=== PATIENT | female | born 1990 | race Caucasian/White ===

== ENCOUNTER 2016-11-09 20:41 | Emergency (ER) | payer BC ==
--- NOTE | 2016-11-09 21:13 | UC ---
Skin Complaint HPI - HPI Summary HPI Summary: 26 YEAR OLD FEMALE PRESENTS WITH COMPLAINS OF MULTIPLE BUG BITES. - History of Current Complaint Time Seen by Provider: 11/09/16 21:10 Stated Complaint: BUG BITES Hx Obtained From: Patient Hx Last Menstrual Period: 2 WEEKS AGO Onset/Duration: Lasting Days Skin Exposure Onset/Duration: Days Ago Timing: Constant Onset Severity: Moderate Current Severity: Moderate Pain Scale Used: 0-10 Numeric - 5 - Allergy/Home Medications Allergies/Adverse Reactions: Allergies Allergy/AdvReac Type Severity Reaction Status Date / Time No Known Allergies Allergy Verified 11/09/16 21:23 Review of Systems Constitutional: Negative Skin: Other - INSECT BITES Eyes: Negative ENT: Negative Respiratory: Negative Cardiovascular: Negative Gastrointestinal: Negative Genitourinary: Negative Motor: Negative Neurovascular: Negative Musculoskeletal: Negative Neurological: Negative Psychological: Negative All Other Systems Reviewed And Are Negative: Yes PMH/Surg Hx/FS Hx/Imm Hx - Surgical History Surgical History: Yes Surgery Procedure, Year, and Place: t/a - Social History Alcohol Use: None Substance Use Type: None Smoking Status (MU): Never Smoked Tobacco Physical Exam Triage Information Reviewed: Yes Eye Exam: Normal ENT Exam: Normal Dental Exam: Normal Neck exam: Normal Neck: Positive: 1 Respiratory Exam: Normal Cardiovascular Exam: Normal Abdominal Exam: Normal Musculoskeletal Exam: Normal Neurological Exam: Normal Psychological Exam: Normal Skin: Positive: Other - INSECT BITES Course/Dx - Diagnoses Provider Diagnoses: INSECT BITES Discharge - Discharge Plan Condition: Stable Disposition: HOME Prescriptions: Cephalexin CAP* [Keflex 500 CAP*] 500 mg PO TID #30 cap Methylprednisolone [Medrol Dosepak 4 MG*] 4 mg PO .SEE RAFIQ INSTRUCTION #21 tab Mupirocin 2% OINT* [Bactroban 2 % Oint*] 1 applic TOPICAL BID #2 tube Patient Education Materials: Insect Bite or Sting (ED), Bed Bugs (ED) Referrals: No Primary Care Phys,NOPCP [Primary Care Provider] -
[2016-11-09 21:30] VITALS: BP 117/71
== END 2016-11-09 21:36 | disposition home or self-care (01) ==
LOC: UCCORT 20:41
DX: T14.8 Other injury of unspecified body region (principal); W57.XXXA Bitten or stung by nonvenomous insect and other nonvenomous arthropods, initial encounter; Y93.9 Activity, unspecified; Y92.9 Unspecified place or not applicable
CPT/HCPCS: 99212; G0463

== ENCOUNTER 2017-07-16 18:39 | Emergency (ER) | payer BC ==
[2017-07-16 19:03] VITALS: BP 111/62
--- NOTE | 2017-07-16 20:03 | UC ---
Skin Complaint HPI - HPI Summary HPI Summary: itchy red blanching rash on both forearms, possible insect bites, - History of Current Complaint Chief Complaint: [facility] Time Seen by Provider: 07/16/17 19:54 Stated Complaint: RASH ON L ARM Hx Obtained From: Patient Hx Last Menstrual Period: 07/02/17 ?: No Onset/Duration: Sudden Onset Onset Severity: Mild Pain Intensity: 0 Location: Discrete Character: Pruritus, Redness Aggravating Factor(s): Nothing Alleviating Factor(s): Nothing Associated Signs & Symptoms: Positive: Negative - Allergy/Home Medications Allergies/Adverse Reactions: Allergies Allergy/AdvReac Type Severity Reaction Status Date / Time No Known Allergies Allergy Verified 07/16/17 19:03 Review of Systems Constitutional: Negative Skin: Rash Eyes: Negative ENT: Negative Respiratory: Negative Cardiovascular: Negative Gastrointestinal: Negative Genitourinary: Negative Motor: Negative Neurovascular: Negative Musculoskeletal: Negative Neurological: Negative Psychological: Negative Is Patient Immunocompromised?: No All Other Systems Reviewed And Are Negative: Yes PMH/Surg Hx/FS Hx/Imm Hx Neurological History: Seizures - Surgical History Surgical History: Yes Surgery Procedure, Year, and Place: t/a - Family History Known Family History: Positive: Unknown - Social History Occupation: Unemployed Lives: With Family Alcohol Use: None Substance Use Type: None Smoking Status (MU): Never Smoked Tobacco Physical Exam Triage Information Reviewed: Yes Appearance: Well-Appearing, No Pain Distress, Well-Nourished Vital Signs: Initial Vital Signs Temp 98.1 F 07/16/17 18:57 Pulse 87 07/16/17 18:57 Resp 16 07/16/17 18:57 BP 111/62 07/16/17 18:57 Pulse Ox 100 07/16/17 18:57 Vital Signs Reviewed: Yes Eye Exam: Normal Eyes: Positive: Conjunctiva Clear ENT Exam: Normal ENT: Positive: Normal ENT inspection, Hearing grossly normal Dental Exam: Normal Neck exam: Normal Neck: Positive: Supple, Nontender Respiratory Exam: Normal Respiratory: Positive: Chest non-tender, No respiratory distress, No accessory muscle use Cardiovascular Exam: Normal Cardiovascular: Positive: RRR, Pulses Normal, Brisk Capillary Refill Musculoskeletal Exam: Normal Musculoskeletal: Positive: Strength Intact, ROM Intact, No Edema Neurological Exam: Normal Neurological: Positive: Alert, Muscle Tone Normal Psychological Exam: Normal Psychological: Positive: Normal Response To Family Skin Exam: Normal Skin: Positive: rashes Course/Dx - Course Course Of Treatment: Benadryl, hydrocortisone, referal to computer architect at your request cool compress , follow with pcp prn - Diagnoses Provider Diagnoses: localized allergic response Discharge - Sign-Out/Discharge Documenting (check all that apply): Discharge/Admit/Transfer - Discharge Plan Condition: Stable Disposition: HOME Patient Education Materials: Diphenhydramine (By mouth), Hydrocortisone (On the skin), Insect Bite or Sting (ED) Referrals: [facility] [place] [facility] [Outside] - If Needed Bhupendra Huff MD [Medical Doctor] - If Needed - Billing Disposition and Condition Condition: STABLE Disposition: HOME
== END 2017-07-16 20:17 | disposition home or self-care (01) ==
LOC: UCCORT 18:39
DX: R21 Rash and other nonspecific skin eruption (principal); T78.40XA Allergy, unspecified, initial encounter; X58.XXXA Exposure to other specified factors, initial encounter; R56.9 Unspecified convulsions
CPT/HCPCS: 99211; G0463